=== PATIENT | female | born 1960 | race Caucasian/White ===

== ENCOUNTER 2018-01-27 13:46 | Emergency (ER) | payer OTHER ==
--- NOTE | 2018-01-27 14:40 | EDPHY ---
H & P Stated Complaint: upper abd pain radiating to back(drifting off to sleep in triage) Time Seen by Provider: 01/27/18 14:12 HPI/ROS: CHIEF COMPLAINT: Epigastric pain radiating to her back HISTORY OF PRESENT ILLNESS: Patient is a 57-year-old female with a history of chronic back pain on 40 mg oxycodone IR daily. She states that she saw her painter touch up yesterday and complained of diffuse muscular pain in her legs arms and back and abdomen. The pain management doctor told her that her magnesium and potassium were low and recommended supplementation. The patient took this and did feel better however now she is having epigastric pain that radiates to her right thoracic back region. She states that it is worse with movement. She has a history of cholecystectomy 5 years ago. She is not a drinker. No nausea vomiting. No chest pain or shortness of breath. The patient did fall sleep in triage desaturated slightly which is baseline for her. No recent travel. No recent surgeries. Nonsmoker. She does not take any hormones. REVIEW OF SYSTEMS: Constitutional: denies: chills, fever, recent illness, recent injury EENTM: denies: blurred vision, double vision, nose congestion Respiratory: denies: cough, shortness of breath Cardiac: denies: chest pain, irregular heart rate, lightheadedness, palpitations Gastrointestinal/Abdominal: denies: abdominal pain, diarrhea, nausea, vomiting, blood streaked stools Genitourinary: denies: dysuria, frequency, hematuria, pain Musculoskeletal: denies: joint pain, muscle pain Skin: denies: lesions, rash, jaundice, bruising Neurological: denies: headache, numbness, paresthesia, tingling, dizziness, weakness Hematologic/Lymphatic: denies: blood clots, easy bleeding, easy bruising Immunologic/allergic: denies: HIV/AIDS, transplant EXAM: GENERAL: Well-appearing, morbidly obese and in no acute distress. HEAD: Atraumatic, normocephalic. EYES: Pupils equal round and reactive to light, extraocular movements intact, sclera anicteric, conjunctiva are normal. ENT: TMs normal, nares patent, oropharynx clear without exudates. Moist mucous membranes. NECK: Normal range of motion, supple without lymphadenopathy or JVD. LUNGS: Breath sounds clear to auscultation bilaterally and equal. No wheezes rales or rhonchi. HEART: Regular rate and rhythm without murmurs, rubs or gallops. ABDOMEN: Soft, nontender, normoactive bowel sounds. No guarding, no rebound. No masses appreciated. BACK: No CVA tenderness, no spinal tenderness, step-offs or deformities EXTREMITIES: Normal range of motion, no pitting or edema. No clubbing or cyanosis. NEUROLOGICAL: Cranial nerves II through XII grossly intact. Normal speech, normal gait. 5/5 strength, normal movement in all extremities, normal sensation PSYCH: Normal mood, normal affect. SKIN: Warm, dry, normal turgor, no visible rashes or lesions. Source: Patient, Family Exam Limitations: No limitations - Personal History Current Tetanus Diphtheria and Acellular Pertussis (TDAP): Yes Tetanus Vaccine Date: 2007 - Medical/Surgical History Hx Asthma: No Hx Chronic Respiratory Disease: No Hx Diabetes: No Hx Cardiac Disease: No Hx Renal Disease: No Hx Cirrhosis: No Hx Alcoholism: No Hx HIV/AIDS: No Hx Splenectomy or Spleen Trauma: No Other PMH: chronic pain/pain dr/spinal stenosis/appy/choly - Family History Significant Family History: No pertinent family hx - Social History Smoking Status: Never smoked Alcohol Use: None Drug Use: None Constitutional: Initial Vital Signs Temperature (C) 36.5 C 01/27/18 13:59 Heart Rate 61 01/27/18 13:59 Respiratory Rate 18 01/27/18 13:59 Blood Pressure 139/99 H 01/27/18 13:59 O2 Sat (%) 93 01/27/18 13:59 O2 Delivery Mode Room Air O2 (L/minute) 2 Allergies/Adverse Reactions: Cephalosporins Allergy (Severe, Verified 01/27/18 13:57) Swelling/neck,face,throat NSAIDS (Non-Steroidal Anti-Inflamma Allergy (Severe, Verified 01/27/18 13:57) GASTRIC BLEEDING Home Medications: Medication Instructions Recorded Gabapentin [Neurontin 300 MG (*)] 300 mg PO TID 02/26/12 Levothyroxine [Synthroid 75 mcg 75 mcg PO DAILY06 02/26/12 (*)] Lisinopril [Zestril 40 mg (*)] 40 mg PO DAILY 02/26/12 traZODone [traZODONE 50MG (*)] 50 mg PO HS 02/26/12 [place]-3 Fatty Acids [Fish Oil 1000 1,000 mg PO DAILY 07/22/12 mg (OTC)] Vit27&Calcium/Iron/FA 1 each PO 07/22/12 [] Sertraline HCl [Zoloft 100mg (RX)] 100 mg PO DAILY 07/22/12 morphINE SR [MS Contin/Oramorph SR 30 mg PO BID 07/22/12 30 mg (RX)] morphINE SR [Ms Contin/Oramorph 15 15 mg PO BID 07/22/12 mg (RX)] oxyCODONE/APAP 5/325 [Percocet 1 - 2 tab PO Q6 PRN 07/22/12 5/325 (RX)] Medical Decision Making - Diagnostics EKG Interpretation: An EKG obtained and was read and documented in trace view. Please see trace view for full reading and report. , sinus rhythm, no acute ischemic changes, some signs of right heart strain is worse than previous ED Course/Re-evaluation: 6:00 p.m. the patient's pain is completely resolved. We discussed her imaging and lab results which are reassuring. She has not yet provided a urine. Her pain seems to be high as the to be a kidney stone but we will check a urine to evaluate for blood. 6:50 p.m. the patient's urinalysis is normal. She feels reassured. She is currently symptom free. I will have her follow up with her primary in the next couple of days if her symptoms persist. We also discussed indications for returning to the emergency department. Differential Diagnosis: Partial list of the Differential diagnosis considered include but were not limited to; gastritis, peptic ulcer disease, esophageal spasm and although unlikely based on the history and physical exam, I also considered PE, dissection, acute coronary disease, pancreatitis, retained stone. I discussed these differential diagnoses and the plan with the patient as well as the usual and expected course. The patient understands that the diagnosis is provisional and that in medicine we are not always correct and that further workup is often warranted. Usual and customary warnings were given. All of the patient's questions were answered. The patient was instructed to return to the emergency department should the symptoms at all worsen or return, otherwise to followup with the physician as we discussed. - Data Points Laboratory Results: Laboratory Results 01/27/18 14:45 01/27/18 14:45 Departure - Departure Disposition: Home, Routine, Self-Care Clinical Impression: Epigastric abdominal pain Condition: Good Instructions: Epigastric Pain (ED) Referrals: HAO PALMER [Other] - 1-2 days without fail
[2018-01-27 14:58] LABS: PLATELET COUNT 297 10^3/uL (150-400)
--- NOTE | 2018-01-27 14:58 | CPEKG ---
Heart Rate: 61 RR Interval: 984 P-R Interval: 168 QRSD Interval: 100 QT Interval: 428 QTC Interval: 431 P [place]: 44 QRS [place]: -26 T Wave [place]: 3 EKG Severity - ABNORMAL ECG - EKG Impression: UNKNOWN RHYTHM, IRREGULAR RATE 48-71 EKG Impression: LEFT VENTRICULAR HYPERTROPHY EKG Impression: Q-waves deeper compared to previous Electronically Signed By: Dionicio Palomares 27-Jan-2018 15:06:45
[2018-01-27 15:08] LABS: INR 0.99 (0.83-1.16); PROTIME(PATIENT) 13.3 SEC (12.0-15.0)
[2018-01-27] MEDS ORDERED: IOPAMIDOL (ISOVUE 370) 100 ML BTL IV ONE (16:00)
[2018-01-27 19:02] VITALS: BP 122/88; PULSE 71; RESP 18; TEMP 98.1; O2SAT 96
== END 2018-01-27 19:05 | disposition home or self-care (01) ==
DX: R10.13 Epigastric pain (principal)
CPT/HCPCS: 71275; 93005; 99285; Q9967

== ENCOUNTER 2019-01-06 12:39 | Emergency (ER) | payer OTHER ==
--- NOTE | 2019-01-06 13:09 | EDPHY ---
H & P Stated Complaint: l flank/abd pain unable to urinate since yesterday Source: Patient Exam Limitations: No limitations - Personal History Current Tetanus Diphtheria and Acellular Pertussis (TDAP): Yes Tetanus Vaccine Date: 2007 - Medical/Surgical History Hx Asthma: No Hx Chronic Respiratory Disease: No Hx Diabetes: No Hx Cardiac Disease: No Hx Renal Disease: No Hx Cirrhosis: No Hx Alcoholism: No Hx HIV/AIDS: No Hx Splenectomy or Spleen Trauma: No Other PMH: chronic back pain/pain dr/spinal stenosis/appy/choly, C-sections x3, right knee replacement - Social History Smoking Status: Former smoker Time Seen by Provider: 01/06/19 13:08 HPI/ROS: HPI: This is a 58-year-old female who presents with Chief Complaint: l flank/abd pain unable to urinate since yesterday Location: Left Flank abdomen Quality: Pain Duration: Since yesterday Signs and Symptoms: no fever, no nausea, no vomiting, no hematemesis, no blood in stool, no abdominal bloating, no diarrhea, no back pain, no urinary symptoms , no vaginal bleeding/discharge, no indigestion, no chest pain, no shortness of breath Timing: Acute, constant Severity: Moderate Context: Patient has a history of chronic back pain due to spinal stenosis on chronic pain medications presents with sudden onset yesterday of left flank and abdominal pain in the suprapubic area. She reports that her last urination was yesterday evening around 10:00 p.m.. Upon arrival to emergency room she was able to give a small sample of urine. She denies burning with urination, fever , nausea, vomiting, diarrhea. No history of urinary retention. No new medications. Modifying Factors: None Comment: ROS: A comprehensive 10 system review of systems is otherwise negative aside from elements mentioned in the history of present illness. MEDICAL/SURGICAL/SOCIAL HISTORY: Medical history: chronic back pain/pain dr/spinal stenosis Surgical history: Appendectomy, cholecystectomy, C-sections x3, right knee replacement Social history: Former smoker. Family history noncontributory. CONSTITUTIONAL: Overweight, nontoxic appearing middle-aged white female, awake and alert, no obvious distress HEENT: Atraumatic and normocephalic, PERRL, EOMI. Nares patent; no rhinorrhea; no nasal mucosal edema. Tympanic membranes clear. Oropharynx clear, no exudate and moist pink mucosa. Airway patent. No lymphadenopathy. No meningismus. Cardiovascular: Normal S1/S2, regular rate, regular rhythm, without murmur rub or gallop. PULMONARY/CHEST: Symmetrical and nontender. Clear to auscultation bilaterally. Good air movement. No accessory muscle usage. ABDOMEN: Soft, nondistended, nontender, no rebound, no guarding, no peritoneal signs, no masses or organomegaly. No CVAT. Bowel sounds heard all 4 quadrants. EXTREMITIES: 2/2 pulses, strength 5/5, no deformities, no clubbing, no cyanosis or edema. NEUROLOGICAL: no focal neuro deficits. GCS 15. SKIN: Warm and dry, no erythema. no rash. Good capillary refill. (Lucinda Scott) Constitutional: Initial Vital Signs Temperature (C) 36.9 C 01/06/19 12:43 Heart Rate 81 01/06/19 12:43 Respiratory Rate 18 01/06/19 12:43 Blood Pressure 134/101 H 01/06/19 12:43 O2 Sat (%) 95 01/06/19 12:43 O2 Delivery Mode Room Air Allergies/Adverse Reactions: Cephalosporins Allergy (Severe, Verified 01/06/19 12:42) Swelling/neck,face,throat NSAIDS (Non-Steroidal Anti-Inflamma Allergy (Severe, Verified 01/06/19 12:42) GASTRIC BLEEDING Home Medications: Medication Instructions Recorded DULoxetine [Cymbalta 30 MG (*)] 30 mg PO DAILY 07/01/18 oxyCODONE IR [Oxycodone Ir (*)] 15 mg PO Q6 PRN 10/24/18 Medical Decision Making - Diagnostics Imaging Results: Imaging Impressions Abdomen/Pelvis Ultrasound 01/06/19 13:16 Impression: 1. Normal kidneys without hydronephrosis. 2. No mass. 3. No postvoid residual. Findings and recommendations discussed with Lucinda Scott at 2:00 PM hour, 01/06. Final report concurs with initial preliminary interpretation.. No ascites or mass. ED Course/Re-evaluation: Vital signs reviewed and stable upon arrival. No systemic signs. Bladder scan at bedside by tech shows 0 mL IV access, laboratory studies, retroperitoneal ultrasound ordered Given 1 L normal saline 1320: Urinalysis is negative. 1355: Labs reviewed. creatinine 0.9, potassium 3.9. No signs of leukocytosis/ anemia/platelet dysfunction/JW/electrolyte imbalance. 1406: Called by Radiology, Dr. Castanon, who advised ultrasound shows no signs hydronephrosis, stone, masses, postvoid residual 1415: Patient Able to urinate without any difficulty and reports no abdominal or back pain. Do not feel of [place] catheter is necessary at this time. Symptoms have resolved at this point and I believe that this may be related to pain medications and constipation. Patient will be taking [id number] MiraLax and stool softeners, push fluids, follow-up with PCP and if symptoms worsen return to the emergency room immediately. This patient was seen under the supervision of my secondary supervising physician. I evaluated care for this patient with attending. Discussed this patient with Dr. Wadsworth. (Lucinda Scott) I did not see this patient while she was in the emergency department. However her care was discussed with the PA while the patient was in the department. I agree with treatment plan (Chandrakant Wadsworth) Differential Diagnosis: Abdominal pain including but not limited to appendicitis, cholecystitis, gastritis and urinary tract infection. (Lucinda Scott) - Data Points Laboratory Results: Laboratory Results 01/06/19 13:19 01/06/19 13:19 01/06/19 01/06/19 01/06/19 13:24 13:19 13:19 WBC 8.06 10^3/uL 10^3/uL (3.80-9.50) RBC 5.05 10^6/uL 10^6/uL (4.18-5.33) Hgb 12.9 g/dL g/dL (12.6-16.3) POC Hgb 14.3 gm/dL gm/dL (12.6-16.3) Hct 41.4 % % (38.0-47.0) POC Hct 42 % % (38-47) MCV 82.0 fL fL (81.5-99.8) MCH 25.5 pg L pg (27.9-34.1) MCHC 31.2 g/dL L g/dL (32.4-36.7) RDW 14.6 % % (11.5-15.2) Plt Count 277 10^3/uL 10^3/uL (150-400) MPV 10.7 fL fL (8.7-11.7) Neut % (Auto) 65.0 % % (39.3-74.2) Lymph % (Auto) 26.9 % % (15.0-45.0) [place] % (Auto) 5.7 % % (4.5-13.0) Eos % (Auto) 1.5 % % (0.6-7.6) Baso % (Auto) 0.7 % % (0.3-1.7) Nucleat RBC Rel Count 0.0 % % (0.0-0.2) Absolute Neuts (auto) 5.23 10^3/uL 10^3/uL (1.70-6.50) Absolute Lymphs (auto) 2.17 10^3/uL 10^3/uL (1.00-3.00) Absolute Monos (auto) 0.46 10^3/uL 10^3/uL (0.30-0.80) Absolute Eos (auto) 0.12 10^3/uL 10^3/uL (0.03-0.40) Absolute Basos (auto) 0.06 10^3/uL 10^3/uL (0.02-0.10) Absolute Nucleated RBC 0.00 10^3/uL 10^3/uL (0-0.01) Immature Gran % 0.2 % % (0.0-1.1) Immature Gran # 0.02 10^3/uL 10^3/uL (0.00-0.10) POC Sodium 137 mEq/L mEq/L (135-145) Sodium 135 mEq/L mEq/L (135-145) POC Potassium 3.9 mEq/L mEq/L (3.3-5.0) Potassium 4.2 mEq/L mEq/L (3.5-5.2) POC Chloride 99 mEq/L mEq/L (97-110) Chloride 101 mEq/L mEq/L (97-110) Carbon Dioxide 24 mEq/l mEq/l (22-31) POC Total CO2 26 mEq/L mEq/L (22-31) Anion Gap 10 mEq/L mEq/L (6-14) POC BUN 23 mg/dL mg/dL (7-23) BUN 25 mg/dL H mg/dL (7-23) Creatinine 0.9 mg/dL mg/dL (0.6-1.0) POC Creatinine 0.9 mg/dL mg/dL (0.6-1.0) Estimated GFR > 60 Glucose 97 mg/dL mg/dL (70-100) POC Glucose 98 mg/dL mg/dL (70-100) Calcium 9.6 mg/dL mg/dL (8.5-10.4) Total Bilirubin 0.4 mg/dL mg/dL (0.1-1.4) Conjugated Bilirubin 0.3 mg/dL mg/dL (0.0-0.5) Unconjugated Bilirubin 0.1 mg/dL mg/dL (0.0-1.1) AST 20 IU/L IU/L (14-46) ALT 15 IU/L IU/L (9-52) Alkaline Phosphatase 122 IU/L IU/L (38-126) Total Protein 7.3 g/dL g/dL (6.3-8.2) Albumin 4.3 g/dL g/dL (3.5-5.0) Urine Color Urine Appearance Urine pH Ur Specific [place] Urine Protein Urine Ketones Urine Blood Urine Nitrate Urine Bilirubin Urine Urobilinogen Ur Leukocyte Esterase Urine Glucose 01/06/19 12:45 WBC RBC Hgb POC Hgb Hct POC Hct MCV MCH MCHC RDW Plt Count MPV Neut % (Auto) Lymph % (Auto) [place] % (Auto) Eos % (Auto) Baso % (Auto) Nucleat RBC Rel Count Absolute Neuts (auto) Absolute Lymphs (auto) Absolute Monos (auto) Absolute Eos (auto) Absolute Basos (auto) Absolute Nucleated RBC Immature Gran % Immature Gran # POC Sodium Sodium POC Potassium Potassium POC Chloride Chloride Carbon Dioxide POC Total CO2 Anion Gap POC BUN BUN Creatinine POC Creatinine Estimated GFR Glucose POC Glucose Calcium Total Bilirubin Conjugated Bilirubin Unconjugated Bilirubin AST ALT Alkaline Phosphatase Total Protein Albumin Urine Color YELLOW Urine Appearance CLEAR Urine pH 5.0 (5.0-7.5) Ur Specific [place] 1.011 (1.002-1.030) Urine Protein NEGATIVE (NEGATIVE) Urine Ketones NEGATIVE (NEGATIVE) Urine Blood NEGATIVE (NEGATIVE) Urine Nitrate NEGATIVE (NEGATIVE) Urine Bilirubin NEGATIVE (NEGATIVE) Urine Urobilinogen NEGATIVE EU EU (0.2-1.0) Ur Leukocyte Esterase NEGATIVE (NEGATIVE) Urine Glucose NEGATIVE (NEGATIVE) Medications Given: Discontinued Medications Sodium Chloride (Ns) 1,000 mls @ 0 mls/hr IV ONCE ONE; Wide Open PRN Reason: Protocol Stop: 01/06/19 13:16 Last Admin: 01/06/19 13:24 Dose: 1,000 mls Point of Care Test Results: Chemistry 01/06/19 13:24 POC Sodium 137 mEq/L mEq/L (135-145) POC Potassium 3.9 mEq/L mEq/L (3.3-5.0) POC Chloride 99 mEq/L mEq/L (97-110) POC Total CO2 26 mEq/L mEq/L (22-31) POC BUN 23 mg/dL mg/dL (7-23) POC Creatinine 0.9 mg/dL mg/dL (0.6-1.0) POC Glucose 98 mg/dL mg/dL (70-100) ISTAT H&H 01/06/19 13:24 POC Hgb 14.3 gm/dL gm/dL (12.6-16.3) POC Hct 42 % % (38-47) Departure - Departure Disposition: Home, Routine, Self-Care Clinical Impression: Acute urinary retention Condition: Good Instructions: Acute Urinary Retention in Women (ED) Additional Instructions: Consume a minimum of 8-10 glasses of water or electrolyte fluid replacement drinks that include Gatorade, Powerade, Pedialyte. Eat a bland diet for the next 48 hours and then slowly advance as tolerated. Take dqoh-lcu-veeoale MiraLax or stool softeners like Colace daily as needed for constipation. Return at once for any worsening symptoms or concerns. Follow-up with Urology as needed into your primary care provider in the next several days. Referrals: CLEMENT SOFIA [Other] - As per Instructions Esteban Mcrae MD [Medical Doctor] - As per Instructions
[2019-01-06] MEDS ORDERED: NS 1,000 ML IV ONE (13:15)
[2019-01-06 13:34] LABS: PLATELET COUNT 277 10^3/uL (150-400)
[2019-01-06 14:25] VITALS: BP 153/100
== END 2019-01-06 14:25 | disposition home or self-care (01) ==
PROC: 4A0D7LZ Measurement of Urinary Volume, Via Natural or Artificial Opening (ICD-10-PCS; principal; 2019-01-06)
DX: R33.9 Retention of urine, unspecified (principal); E86.9 Volume depletion, unspecified
CPT/HCPCS: 82435-PO; 82565-PO; 82947-PO; 84132-PO; 84295-PO; 84520-PO; 85014-ER

== ENCOUNTER 2019-02-11 18:23 | Emergency (ER) | payer OTHER ==
--- NOTE | 2019-02-11 19:34 | EDPHY ---
H & P Time Seen by Provider: 02/11/19 19:14 HPI/ROS: Chief complaint. Not feeling well HPI. 58-year-old female not sleeping well for the last few days. Slight cough that is occasionally productive. No fever. No chest pain. Slight sore throat. She has ongoing left-sided pain which is not new or different. No vomiting or diarrhea. Recent colonoscopy and endoscopy as part of the workup. Normal abdominal CT for the left side abdominal pain in January. The diagnosis at that time was urinary retention. No recent travel or known exposure to Infectious Disease. Recent addition of Flexeril to medications for pain ROS 10 systems were reviewed and negative with the exception of the elements mentioned in the history of present illness Past Medical/Surgical History: Chronic back pain, spinal stenosis, appendectomy, cholecystectomy, C-sections, right knee replacement Social History: , nonsmoker, no alcohol Smoking Status: Former smoker Physical Exam: General Appearance: Alert, tired appearing female mild distress. Stable vital signs Eyes: Pupils equal and round no pallor or injection. ENT, pharynx without injection. Mucous membranes are moist Respiratory: There are no retractions, lungs are clear to auscultation. Cardiovascular: Regular rate and rhythm. Gastrointestinal: Abdomen is soft and nontender, no masses, bowel sounds normal. Neurological: Awake and alert, sensory and motor exams grossly normal. Skin: Warm and dry, no rashes. Musculoskeletal: Neck is supple nontender. Extremities symmetrical, full range of motion. Psychiatric: Patient is oriented X 3, there is no agitation. Constitutional: Initial Vital Signs Temperature (C) 36.6 C 02/11/19 18:27 Heart Rate 82 02/11/19 18:27 Respiratory Rate 16 02/11/19 18:27 Blood Pressure 171/96 H 02/11/19 18:27 O2 Sat (%) 94 02/11/19 18:27 O2 Delivery Mode Room Air Allergies/Adverse Reactions: Cephalosporins Allergy (Severe, Verified 01/06/19 12:42) Swelling/neck,face,throat NSAIDS (Non-Steroidal Anti-Inflamma Allergy (Severe, Verified 01/06/19 12:42) GASTRIC BLEEDING Home Medications: Medication Instructions Recorded DULoxetine [Cymbalta 30 MG (*)] 30 mg PO DAILY 07/01/18 oxyCODONE IR [Oxycodone Ir (*)] 15 mg PO Q6 PRN 10/24/18 Cyclobenzaprine [Flexeril 10 MG 02/11/19 (*)] Zolpidem Tartrate [Ambien] 10 mg PO HS #7 tablet 02/11/19 Medical Decision Making ED Course/Re-evaluation: Patient and I discussed treatment plan including criteria for return. I told her I think that this is viral syndrome. We will use medication to help her sleep. She will follow up with her regular physician for further sleep medicine if necessary Differential Diagnosis: Probable viral syndrome. Insomnia. No evidence of acute medical problem Departure - Departure Disposition: Home, Routine, Self-Care Clinical Impression: Viral syndrome Insomnia Qualifiers: Insomnia type: unspecified Qualified Code(s): G47.00 - Insomnia, unspecified Condition: Good Instructions: Viral Syndrome (ED), Insomnia (ED) Additional Instructions: Ativan 1 pill tonight to help with sleep Tylenol as needed for fever Return for worsening symptoms Follow-up with Dr. Real for discussion of continuing sleep aids Referrals: THOMAS REAL [Other] - 2-3 days, call for appt. Prescriptions: Zolpidem Tartrate [Ambien] 10 mg PO HS #7 tablet
[2019-02-11] MEDS ORDERED: LORAZEPAM 1 MG PREPACK#4 BTL TAKEHOME ONE (19:48)
[2019-02-11 22:40] VITALS: BP 133/91
== END 2019-02-11 22:40 | disposition home or self-care (01) ==
DX: B34.9 Viral infection, unspecified (principal); G47.00 Insomnia, unspecified; M79.89 Other specified soft tissue disorders; Z87.891 Personal history of nicotine dependence

== ENCOUNTER 2019-03-28 14:04 | Emergency (ER) | payer OTHER ==
[2019-03-28] MEDS ORDERED: fentaNYL 100 MCG/2 ML INJ IVP ONE (14:23)
[2019-03-28] MEDS ORDERED: KETOROLAC 30 MG/1 ML SDV IVP ONE (14:23)
[2019-03-28] MEDS ORDERED: NS 1,000 ML IV ONE (14:23)
[2019-03-28] MEDS ORDERED: ONDANSETRON 4 MG/2 ML VIAL IVP ONE (14:23)
--- NOTE | 2019-03-28 14:27 | EDPHY ---
H & P Time Seen by Provider: 03/28/19 14:15 HPI/ROS: CHIEF COMPLAINT: Left flank pain HISTORY OF PRESENT ILLNESS: Patient is a 58-year-old female presents emergency department with severe left flank pain. Patient states she has chronic left upper quadrant pain. She has had numerous evaluations over years. She has had CT imaging as well as colonoscopy. She was told that she may have "internal shingles and "by her inspector repairer. Patient states that last evening she developed left flank pain. This is new. It does not radiate. It worsened this morning. She feels as though it is worse when she takes a deep breath. She has had no cough or shortness of breath. No fevers or chills. It is not worse with movement. No dysuria, hematuria or frequency. REVIEW OF SYSTEMS: 10 systems were reveiwed and are negative with the exception of the elements mentioned in the history of present illness. Past Medical/Surgical History: Includes chronic pain, spinal stenosis past surgical history: Cholecystectomy, , knee replacement, gastric bypass Social history: Patient does not smoke Smoking Status: Former smoker Physical Exam: Vitals noted GENERAL: Well-appearing, in no acute distress, alert. HEENT: Eyes normal to inspection, normal pharynx, no signs of dehydration. NECK: Normal, supple. RESPIRATORY: Clear to auscultation bilaterally, no rales, rhonchi or wheezing. CVS: Regular rate and rhythm, no rubs, murmurs, or gallops. ABDOMEN: Soft, nontender, nondistended, no organomegaly. BACK: Normal to inspection, mild right CVA tenderness. The patient's left posterior ribs have mild tenderness to palpation. No crepitus or palpable deformity. SKIN: Normal color, no rash, warm, dry. No pallor. EXTREMITIES: No pedal edema, no calf tenderness, no Homans sign or cords, no joint swelling. NEURO/PSYCH: Alert and oriented, normal mood and affect, normal motor sensory exam. Constitutional: Initial Vital Signs Temperature (C) 36.8 C 03/28/19 14:07 Heart Rate 113 H 03/28/19 14:07 Respiratory Rate 18 03/28/19 14:07 Blood Pressure 154/117 H 03/28/19 14:07 O2 Sat (%) 97 03/28/19 14:07 O2 Delivery Mode Room Air Allergies/Adverse Reactions: Cephalosporins Allergy (Severe, Verified 03/28/19 14:06) Swelling/neck,face,throat NSAIDS (Non-Steroidal Anti-Inflamma Allergy (Severe, Verified 03/28/19 14:06) GASTRIC BLEEDING baclofen Allergy (Verified 03/28/19 14:06) Home Medications: Medication Instructions Recorded DULoxetine [Cymbalta 30 MG (*)] 30 mg PO DAILY 07/01/18 oxyCODONE IR [Oxycodone Ir (*)] 15 mg PO Q6 PRN 10/24/18 Ondansetron Odt [Zofran Odt 4 mg 4 mg PO Q4PRN PRN #7 tab 03/28/19 (*)] oxyCODONE/APAP 5/325 [Percocet 1 - 2 tab PO Q4PRN PRN #11 tab 03/28/19 5/325 (*)] Medical Decision Making - Diagnostics Imaging Results: Imaging Impressions Abdomen/Pelvis CT 03/28/19 14:28 Impression: 1. Negative for nephrolithiasis or obstructive uropathy. 2. Postoperative changes consistent with gastric bypass. 3. Spinal canal stenosis at the L4-L5 level. 4. Query constipation. 5. See above report for additional findings. Results called and discussed with ANNA TIPTON on 03/28/2019 15:18. ED Course/Re-evaluation: In the emergency department I discussed possible etiologies with the patient. I answered all her questions. IV was placed. Laboratory studies, CT imaging were obtained. Patient was given fentanyl 50 mcg IV and Toradol 30 mg IV for pain. She is given Zofran 4 mg IV for nausea. Patient's CBC was remarkable for a white count of 9.9. Hematocrit is normal at 43. Platelet count was 443. The patient had a low MCV and a low MCH. Chemistry panel is normal. UA is unremarkable. Patient's D-dimer 0.28. CT of the abdomen pelvis: Please refer the dictated report. No acute disease noted. 1535: I discussed the results with the patient. I answered all her questions. Patient states that her pain was still present. She is given Dilaudid 0.5 mg IV. 16 30: I rechecked the patient. She is feeling much better. She has no pain at this time. On repeat exam her abdomen is soft, nontender nondistended. No CVA tenderness. Patient will follow up with Dr. Real tomorrow. She was given warnings prior to leaving. She will return with worsening symptoms. Differential Diagnosis: My differential includes but is not limited to kidney stone, urinary tract infection, pyelonephritis, pneumothorax, PE, mass, malignancy, pneumonia, bronchitis - Data Points Laboratory Results: Laboratory Results 03/28/19 14:25 03/28/19 14:25 03/28/19 03/28/19 03/28/19 14:25 14: 14:25 WBC RBC Hgb Hct MCV MCH MCHC RDW Plt Count MPV Neut % (Auto) Lymph % (Auto) Gray % (Auto) Eos % (Auto) Baso % (Auto) Nucleat RBC Rel Count Absolute Neuts (auto) Absolute Lymphs (auto) Absolute Monos (auto) Absolute Eos (auto) Absolute Basos (auto) Absolute Nucleated RBC Immature Gran % Immature Gran # D-Dimer 0.28 ug/mLFEU ug/mLFEU (0.00-0.50) Sodium 138 mEq/L mEq/L (135-145) Potassium 4.4 mEq/L mEq/L (3.5-5.2) Chloride 104 mEq/L mEq/L (97-110) Carbon Dioxide 21 mEq/l L mEq/l (22-31) Anion Gap 13 mEq/L mEq/L (6-14) BUN 18 mg/dL mg/dL (7-23) Creatinine 0.9 mg/dL mg/dL (0.6-1.0) Estimated GFR > 60 Glucose 87 mg/dL mg/dL (70-100) Calcium 10.1 mg/dL mg/dL (8.5-10.4) Beta HCG, Qual NEGATIVE Urine Color Urine Appearance Urine pH Ur Specific Butler Urine Protein Urine Ketones Urine Blood Urine Nitrate Urine Bilirubin Urine Urobilinogen Ur Leukocyte Esterase Urine RBC Urine WBC Ur Epithelial Cells Urine Bacteria Urine Mucus Urine Glucose 03/28/19 03/28/19 14:25 14:19 WBC 9.90 10^3/uL H 10^3/uL (3.80-9.50) RBC 5.54 10^6/uL H 10^6/uL (4.18-5.33) Hgb 14.0 g/dL g/dL (12.6-16.3) Hct 43.3 % % (38.0-47.0) MCV 78.2 fL L fL (81.5-99.8) MCH 25.3 pg L pg (27.9-34.1) MCHC 32.3 g/dL L g/dL (32.4-36.7) RDW 15.4 % H % (11.5-15.2) Plt Count 443 10^3/uL H 10^3/uL (150-400) MPV 10.0 fL fL (8.7-11.7) Neut % (Auto) 69.2 % % (39.3-74.2) Lymph % (Auto) 21.8 % % (15.0-45.0) Gray % (Auto) 7.5 % % (4.5-13.0) Eos % (Auto) 0.4 % L % (0.6-7.6) Baso % (Auto) 0.9 % % (0.3-1.7) Nucleat RBC Rel Count 0.0 % % (0.0-0.2) Absolute Neuts (auto) 6.85 10^3/uL H 10^3/uL (1.70-6.50) Absolute Lymphs (auto) 2.16 10^3/uL 10^3/uL (1.00-3.00) Absolute Monos (auto) 0.74 10^3/uL 10^3/uL (0.30-0.80) Absolute Eos (auto) 0.04 10^3/uL 10^3/uL (0.03-0.40) Absolute Basos (auto) 0.09 10^3/uL 10^3/uL (0.02-0.10) Absolute Nucleated RBC 0.00 10^3/uL 10^3/uL (0-0.01) Immature Gran % 0.2 % % (0.0-1.1) Immature Gran # 0.02 10^3/uL 10^3/uL (0.00-0.10) D-Dimer Sodium Potassium Chloride Carbon Dioxide Anion Gap BUN Creatinine Estimated GFR Glucose Calcium Beta HCG, Qual Urine Color YELLOW Urine Appearance HAZY Urine pH 5.0 (5.0-7.5) Ur Specific Butler 1.031 H (1.002-1.030) Urine Protein NEGATIVE (NEGATIVE) Urine Ketones TRACE H (NEGATIVE) Urine Blood NEGATIVE (NEGATIVE) Urine Nitrate NEGATIVE (NEGATIVE) Urine Bilirubin NEGATIVE (NEGATIVE) Urine Urobilinogen 4.0 EU H EU (0.2-1.0) Ur Leukocyte Esterase NEGATIVE (NEGATIVE) Urine RBC 1-3 /hpf /hpf (0-3) Urine WBC 1-3 /hpf /hpf (0-3) Ur Epithelial Cells TRACE /lpf /lpf (NONE-1+) Urine Bacteria 1+ /hpf H /hpf (NONE SEEN) Urine Mucus TRACE /lpf /lpf (NONE-1+) Urine Glucose NEGATIVE (NEGATIVE) Medications Given: Discontinued Medications Fentanyl (Sublimaze) 50 mcg IVP EDNOW ONE Stop: 03/28/19 14:24 Last Admin: 03/28/19 14:35 Dose: 50 mcg Hydromorphone HCl (Dilaudid) 0.5 mg IVP EDNOW ONE Stop: 03/28/19 15:39 Last Admin: 03/28/19 15:42 Dose: 0.5 mg Sodium Chloride (Ns) 1,000 mls @ 0 mls/hr IV EDNOW ONE; Wide Open PRN Reason: Protocol Stop: 03/28/19 14:24 Last Admin: 03/28/19 14:31 Dose: 1,000 mls Ketorolac Tromethamine (Toradol) 30 mg IVP EDNOW ONE Stop: 03/28/19 14:24 Last Admin: 03/28/19 14:32 Dose: 30 mg Ondansetron HCl (Zofran) 4 mg IVP EDNOW ONE Stop: 03/28/19 14:24 Last Admin: 03/28/19 14:31 Dose: 4 mg Departure - Departure Disposition: Home, Routine, Self-Care Clinical Impression: Flank pain Condition: Good Instructions: Flank Pain (ED) Additional Instructions: Return with increasing pain, fever, shortness of breath or any other concerns. Referrals: THOMAS REAL NP [Other] - 1-2 days without fail Prescriptions: Ondansetron Odt [Zofran Odt 4 mg (*)] 4 mg PO Q4PRN PRN #7 tab PRN Reason: For Nausea & Vomiting oxyCODONE/APAP 5/325 [Percocet 5/325 (*)] 1 - 2 tab PO Q4PRN PRN #11 tab PRN Reason: For Moderate To Severe Pain
[2019-03-28 14:38] LABS: PLATELET COUNT 443 10^3/uL (150-400)
[2019-03-28] MEDS ORDERED: HYDROmorphONE/DILAUDID 2 MG/ML INJ IVP ONE (15:38)
[2019-03-28 16:50] VITALS: BP 160/97
== END 2019-03-28 16:50 | disposition home or self-care (01) ==
DX: R10.32 Left lower quadrant pain (principal); G89.29 Other chronic pain
CPT/HCPCS: 74176; 96374; 96375; 99285; J1170; J1885; J2405; J3010

== ENCOUNTER → 2019-04-08 | Outpatient (CLI) | payer OTHER | LOC: EMCIMAGING 08:58 | DX: M48.061 Spinal stenosis, lumbar region without neurogenic claudication (principal); M43.16 Spondylolisthesis, lumbar region; M51.36 Other intervertebral disc degeneration, lumbar region; M51.26 Other intervertebral disc displacement, lumbar region; M51.27 Other intervertebral disc displacement, lumbosacral region | CPT/HCPCS: 72110-PN; 72148-PN ==